=== PATIENT | male | born 1955 | race Caucasian/White ===

== ENCOUNTER → 2017-02-20 | Outpatient (CLI) | payer MEDICARE, MEDICAID | END | disposition home or self-care (01) | LOC: RAD 14:59 | PROVIDERS: ATTEND Physician Assistant | DX: Z02.9 Encounter for administrative examinations, unspecified (principal) ==

== ENCOUNTER 2018-09-15 01:18 | Emergency (ER) | payer MEDICAID, MEDICARE | END 2018-09-15 01:58 | disposition left against medical advice (07) | LOC: ED 01:52 | DX: M25.562 Pain in left knee (principal); Z53.21 Procedure and treatment not carried out due to patient leaving prior to being seen by health care provider ==

== ENCOUNTER 2019-02-12 01:15 | Emergency (ER) | payer MEDICARE ==
[~2019-02-12] VITALS: Ht 170.2 cm; Wt 66.6 kg
[2019-02-12 01:17] VITALS: BP 188/95
[2019-02-12] MEDS ORDERED: HYDROcodone/APAP 5/325 TABLET ONE (01:47)
[2019-02-12] MEDS ORDERED: HYDROcodone/APAP 5/325 TABLET PO ONE (02:00)
--- NOTE | 2019-02-12 02:03 | NUR ---
DC EDUCATION PROVIDED, PT DEMONSTRATES UNDERSTANDING. PT AMBULATED STEADILY TO DC WITH RN
== END 2019-02-12 02:05 | disposition home or self-care (01) ==
LOC: ED 01:54
DX: K08.89 Other specified disorders of teeth and supporting structures (principal); R51 Headache; J44.9 Chronic obstructive pulmonary disease, unspecified; F17.200 Nicotine dependence, unspecified, uncomplicated
CPT/HCPCS: 99282

== ENCOUNTER 2020-09-13 22:55 | Emergency (ER) | payer MEDICARE, MEDICAID ==
[~2020-09-13] VITALS: Ht 170.2 cm; Wt 68.9 kg
--- NOTE | 2020-09-14 00:27 | NUR ---
pt to room from lobby
[2020-09-14] MEDS ORDERED: LIDOCAINE-MPF 2% ,5ML ONE (00:54)
[2020-09-14] MEDS ORDERED: LIDOCAINE 1%, 10ML INFIL ONE (01:00)
[2020-09-14] MEDS ORDERED: LIDOCAINE-MPF 1%, 5ML INFIL ONE (01:00)
--- NOTE | 2020-09-14 01:11 | NUR ---
ua collected and sent tolab. Pt resting in bed in nad. call light in reach
[2020-09-14 01:25] LABS: MICROSCOPIC INDICATED
[2020-09-14] MEDS ORDERED: NEOSPORIN OINT. PKT 1 PACKET ONE (01:28)
[2020-09-14] MEDS ORDERED: SULFAMETH./TRIMETHOPRIM DS 800MG/160MG TABLET ONE (02:13)
[2020-09-14] MEDS ORDERED: LIDOCAINE-MPF 1%, 5ML ONE (02:14)
[2020-09-14] MEDS ORDERED: CEFTRIAXONE 250 MG ONE (02:14)
[2020-09-14 02:22] VITALS: BP 135/87
--- NOTE | 2020-09-14 02:23 | NUR ---
Dc home no adverse rxn.
[2020-09-14] MEDS ORDERED: SULFAMETH./TRIMETHOPRIM DS 800MG/160MG TABLET PO ONE (02:30)
[2020-09-14] MEDS ORDERED: CEFTRIAXONE 1,000 MG IM ONE (02:30)
== END 2020-09-14 02:24 | disposition home or self-care (01) ==
LOC: ED 23:25
DX: N30.00 Acute cystitis without hematuria (principal); N49.2 Inflammatory disorders of scrotum; N50.812 Left testicular pain; R30.0 Dysuria; J44.9 Chronic obstructive pulmonary disease, unspecified; F17.210 Nicotine dependence, cigarettes, uncomplicated; Z90.49 Acquired absence of other specified parts of digestive tract
CPT/HCPCS: 55100; 76870; 81001; 87077; 87086; 87491; 87591; 96372; 99284; 99406; J0696; 87186